=== PATIENT | female | born 1980 | race Two or more races ===

== ENCOUNTER 2020-07-11 12:55 | Inpatient (IN) | payer OTHER ==
[~2020-07-11] VITALS: Ht 152.4 cm; Wt 77.6 kg
[~2020-07-11 12:55] MED LIST: SYNTHROID50 MCG PO; WELLBUT PO; ZOLOFT100 MG PO
[2020-07-19] MEDS ORDERED: ALYACEN1 EACH (08:34)
[2020-07-19] MEDS ORDERED: OLANZAPINE10 MG (08:35)
[2020-07-19] MEDS ORDERED: BUPROPION XL150 MG (08:35)
== END 2020-07-22 09:36 | disposition home or self-care (01) | DRG 741 ==
LOC: O/R 07-19 05:42 → OB/GYN 07-19 05:42 → SURH 07-19 07:00 → OB/GYN 07-19 09:59
PROVIDERS: ADMIT Obstetrics & Gynecology Maternal & Fetal Medicine; ATTEND Obstetrics & Gynecology Maternal & Fetal Medicine
PROC: 0UB10ZX Excision of Left Ovary, Open Approach, Diagnostic (ICD-10-PCS; 2020-07-19)
PROC: 0UT90ZZ Resection of Uterus, Open Approach (ICD-10-PCS; principal; 2020-07-19 07:00)
DX: D06.9 Carcinoma in situ of cervix, unspecified (principal); D25.2 Subserosal leiomyoma of uterus; N80.0 Endometriosis of uterus; D27.9 Benign neoplasm of unspecified ovary; E03.8 Other specified hypothyroidism